=== PATIENT | male | born 1985 | race Caucasian/White ===

== ENCOUNTER 2019-10-03 19:38 | Emergency (ER) | payer OTHER ==
[~2019-10-03] VITALS: Ht 175.3 cm; Wt 73.0 kg
[2019-10-03] MEDS ORDERED: SODIUM CHLORIDE 0.9% 1,000 ML IV ONE (21:20)
[2019-10-03] MEDS ORDERED: LEVETIRACETAM 500MG PREMIX 100 ML IV ONE (21:30)
[2019-10-03] MEDS ORDERED: FOLIC ACID 1 MG, THIAMINE HCL 100 MG, MVI, ADULT NO.1 10 ML in DEXTROSE 5% WATER 1,000 ML IV ONE ×4 (21:30)
[2019-10-03] MEDS ORDERED: LORAZEPAM 2MG/ML CPJ IV ONE (21:30)
[2019-10-03 21:45] LABS: BASOPHILS % 1.4 % (0.0-2.0); EOSINOPHILS % 0.3 % (0.0-5.0); HEMATOCRIT. 42.1 % (42.0-52.0); HEMOGLOBIN. 14.6 g/dL (14.0-18.0); LYMPHOCYTES % 9.2 % (20.0-50.0); MEAN CORPUSCULAR HEMOGLOBIN 35.8 pg (28.0-32.0); MONOCYTES % 11.6 % (2.0-8.0); NEUTROPHILS % 77.5 % (40.0-76.0); PLATELET 118 x1000/uL (130-400); RED BLOOD CELL COUNT 4.08 mill/uL (4.7-6.1); RED CELL DISTRIBUTION WIDTH 13.1 % (11.6-14.6)
[2019-10-03 21:47] LABS: CHLORIDE 97 mEq/L (98-107)
[2019-10-03 21:52] LABS: ETHANOL BLOOD < 10 mg/dL
[2019-10-04] MEDS ORDERED: MAGNESIUM 1 G PREMIX 100 ML IV ONE (00:15)
[2019-10-04] MEDS ORDERED: POTASSIUM CHLORIDE 20MEQ TABLET SR PO ONE (00:15)
[2019-10-04 01:19] LABS: *AMPHETAMINES SCREEN URINE NEGATIVE (NEGATIVE); *BARBITURATES SCREEN URINE NEGATIVE (NEGATIVE); *BENZODIAZEPINES SCREEN URINE NEGATIVE (NEGATIVE); *COCAINE SCREEN URINE NEGATIVE (NEGATIVE); METHADONE URINE SCREEN NEGATIVE (NEGATIVE); OPIATES URINE SCREEN NEGATIVE (NEGATIVE)
[2019-10-04 01:20] LABS: CANNABINOID URINE SCREEN PRESUMTIVE POSITIVE (NEGATIVE); PHENCYCLIDINE URINE SCREEN NEGATIVE (NEGATIVE)
[2019-10-04] MEDS ORDERED: IPRATROPIUM/ALBUTEROL 0.5-3(2.5)MG/3ML NEB HHN PRN (02:30)
[2019-10-04] MEDS ORDERED: SODIUM CHLORIDE 0.9% INJ 3ML FLUSH IVF SCH (06:00)
[2019-10-04] MEDS ORDERED: CHLORDIAZEPOXIDE 25MG CAPSULE PO SCH (08:00)
[2019-10-04] MEDS ORDERED: MULTIVITAMINS,THER W-MINERALS TABLET PO SCH (09:00)
[2019-10-04] MEDS ORDERED: THIAMINE HCL 100MG TABLET PO SCH (09:00)
[2019-10-04] MEDS ORDERED: FOLIC ACID 1MG TABLET PO SCH (09:00)
[2019-10-04 12:51] VITALS: BP 123/76
== END 2019-10-04 13:15 | disposition home or self-care (01) ==
LOC: ER 19:38 → CANBEDREQ 10-04 16:34
DX: F10.239 Alcohol dependence with withdrawal, unspecified (principal); R56.9 Unspecified convulsions; E86.0 Dehydration; E87.6 Hypokalemia; R73.9 Hyperglycemia, unspecified; E83.42 Hypomagnesemia; F12.10 Cannabis abuse, uncomplicated; Y90.0 Blood alcohol level of less than 20 mg/100 ml
CPT/HCPCS: 36415; 70450; 71045; 80053; 80305; 80320; 83735; 84484; 85025; 93005; 96365; 96367; 96368; 96375; 99291; J1953; J2060; J3411; J3475; J3490; J7030; J7070; G0480